=== PATIENT | female | born 1945 | race Caucasian/White ===

== ENCOUNTER → 2023-09-19 10:38 | Outpatient (REF) | payer MEDICARE, OTHER, SELFPAY | LOC: WDC 10:38 | PROVIDERS: ATTENDING PHYSICIAN Obstetrics & Gynecology Gynecology; FAMILY PHYSICIAN Internal Medicine Geriatric Medicine; REFERRING PHYSICIAN Internal Medicine Rheumatology | DX: Z12.31 Encounter for screening mammogram for malignant neoplasm of breast (principal); M81.0 Age-related osteoporosis without current pathological fracture | CPT/HCPCS: 77063; 77067; 77080 ==

== ENCOUNTER 2023-10-01 00:34 | Emergency (ER) | payer MEDICARE, OTHER, SELFPAY ==
[2023-10-01 00:38] VITALS: BP 125/70; BMI 23.0
[2023-10-01 00:47] VITALS: BP 97/87
--- NOTE | 2023-10-01 01:02 | ED.GENMED ---
History of Present Illness
General
Chief Complaint: Cardiac Symptoms
Source: patient
Time Seen by Provider: 10/01/23 00:52
Travel History
Have you had any contact with someone who has COVID-19?: No
Do you have any symptoms of coronavirus? Fever > 100 degrees, chills, cough, shortness of breath, sore throat, loss of taste or smell, muscle aches, or headache?: No
History of Present Illness
History of Present Illness:
This patient is a 78-year-old female who says that around 9 PM tonight she felt like she went into a. She describes this as a 'change in my chest' associated with feeling an irregular pulse. She denies associated pain or dyspnea with this. She
has been monitoring her pulse and blood pressure up at night and states that her blood pressure has been 'consist', but she had an episode lasting at least 30 to 40 minutes where her pulse was between 30 and 40. She noted that when she stood up to
go to the bathroom she felt very lightheaded like she might pass out. Currently she feels like she is in A-fib but does not have dizziness. She denies chest pain or pressure, dyspnea, abdominal pain, nausea, vomiting, or other complaints. Patient
denies recent medication changes and is anticoagulated.
Past History
Past History
ED Past Medical History: Arrthythmia, HTN, Hypercholesterolemia, Psychiatric (Anxiety) and Other (Congenital left facial paralysis, irritable bowel syndrome)
ED Past Surgical History: Orthopedic and Other (Sinus surgery)
Patient has exhibited threatening behavior?: No
PSI?: No
Social History
Tobacco: Former smoker
Alcohol: Occasional
Drug: None
Personal:
Living: with family
Family History
Family History: Negative Diabetes, Hypertension, Early CAD, Asthma or Cancer
Phy Exam
Physical Exam
Physical Exam:
GENERAL: Alert , in no apparent distress
EYE: pupils equal and reactive
NECK: Supple, no significant adenopathy.
ENT: o/p clr, mmm.
CARDIAC: Irregularly irregular, not tachycardic
LUNGS: Clear breath sounds bilaterally, no acute respiratory distress,
ABDOMEN: Soft, without focal tenderness, no r/g, no cvat
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
SKIN: Warm and dry, skin intact.
MUSCULOSKELETAL: No edema, well perfused.
PSYCH: Normal and appropriate interaction.
Course
Orders/Labs/Results
Orders:
Orders
10/01/23 00:43
ECG [Electrocardiogram (*1)] Urgent
Reason for Study: Palpitations
Electrocardiogram (*1) Urgent
Reason for Study: Chest Pain
Cardiac Monitoring- Treatment ONCE
EKG- Treatment ONCE
IV Insert/Care/Rem.- Treatment PRN
O2 Therapy [RESP] Urgent
Titrate/Wean O2 to maintain O2 sat greater than (%): 90
Special Instructions: Maintain sats >/=90%
Pulse Ox/spot Check [RESP] Urgent
Quantity: 1
Special Instructions: ON ROOM AIR
10/01/23 00:44
Portable Chest Xray [CR Chest Portable - 1 View] Urgent
Comment:
Reason For Exam: rad
Reason Study Needs to be Portable: Other
10/01/23 00:59
Complete Blood Count/With Diff Urgent
Comprehensive Metabolic Panel Urgent
Prothrombin Time Urgent
Troponin I Urgent
10/01/23 02:02
ECG [Electrocardiogram (*1)] Urgent
Reason for Study: Atrial Fibrillation
Other Reason for Exam: converted to SR?
EKG- Treatment ONCE
Abnormal Lab Results
10/01/23
00:59
MCHC 32.9 L g/dL
(33.0-37.0)
MPV 11.7 H fL
(7.4-10.4)
Absolute Monos (auto) 0.7 H 10^3/uL
(0.1-0.6)
PT 18.8 H Sec
(11.4-14.6)
Chloride 108 H mmol/L
(98-107)
BUN 27 H mg/dl
(7-17)
Glucose 111 H mg/dl
(70-99)
AST 38 H U/L
(14-36)
10/01/23 00:59
10/01/23 00:59
Vital Signs
Initial and Last Documented VS:
Initial Vital Signs
Temp Pulse Resp BP Pulse Ox
98.4 F 36 16 125/70 97
10/01/23 00:38 10/01/23 00:38 10/01/23 00:38 10/01/23 00:38 10/01/23 00:38
Last Documented Vital Signs
Temp Pulse Resp BP Pulse Ox
98.4 F 97 20 132/98 97
10/01/23 00:38 10/01/23 01:03 10/01/23 01:03 10/01/23 01:03 10/01/23 01:23
*Critical Care Note
Total Time (30-74mins, 75-104mins- exclusive of procedures): Not Applicable
Update Note
Update Note:
Patient presents to the Emergency Department with _irregular heartbeat/palpitation
Number and Complexity of Problems Addressed at the Encounter
� Chronic conditions affecting care:
� Acute Exacerbation and/or Progression of Chronic Illness:
� Differential Diagnosis includes: But not limited to recurrent A-fib, sick sinus syndrome, SVT, etc.
Amount and/or Complexity of Data to be Reviewed and Analyzed
� I performed an independent evaluation of and my interpretation is:
EKG: Initial ECG, A-fib, normal rate, nonspecific slight ST downsloping.
CT:
Xrays: Chest x-ray read by me NAD
Laboratory Studies: Generally unremarkable, nonspecific BUN elevation, patient does not appear dehydrated, no reported bleeding
Other:
� Review of other/old records reveals:
� Clinical information was obtained by an independent historian:
� Prescriptions/Medications Considered but not given:
� Further testing considered but not performed:
Risk of Complications and/or Morbidity or Mortality of Patient Management
� Social determinants of health affecting care:
� Discussion with other providers (PCP, Hospitalists, Consultants, etc): Repeat ECG, sinus bradycardia at 58, no acute abnormalities noted.
� Escalation of care including admission/observation vs risk of discharge considered: Pt asx, now in nsr. D/w pt import of f/u with cards...may need med changes based on bradycardia reported earlier, although I am slightly
skeptical of accuracy of this reading, ex. was from a pox in triage and pt asx at that time with recorded rate of 30.
ED Attending Note
-
Portions of this chart may have been created with voice recognition software.� Occasional wrong word or��sound alike� substitutions may have occurred due to the inherent limitations of voice recognition software.
Discharge Plan
Departure
Patient Disposition: Home (Routine Discharge)
Date of Disposition: 10/01/23
Time of Disposition: 02:24
Patient with high blood pressure during this ER visit?: Yes
Condition: Good
Discharge Problem:
A-fib
Instructions: Atrial Fibrillation (DC), BLOOD PRESSURE
Prescriptions:
No Action
atorvastatin 40 MG tablet
40 mg PO QPM
atenolol 25 MG tablet
25 mg PO QPM
paroxetine HCl 20 MG tablet
20 mg PO DAILY
amlodipine-benazepril 1 CAPSULE capsule
1 cap PO DAILY
Rx Instructions:
5 mg
Vitamin D
1 tab PO DAILY
Xarelto 20 MG tablet
20 mg PO DAILY Qty: 14 0RF
coenzyme [id number] E 1 CAP capsule
100 mg PO DAILY
biotin 1,000 MCG tablet,chewable
1,000 mcg PO DAILY
Referrals:
Juan Jose Cyr MD [Family Provider] -
Alex Hedrick MD [Active] - Follow up in 2-3 days
Activity Restrictions/Additional Instructions:
PLEASE CONTACT YOUR CONTINUITY CLERK ON TUESDAY TO ALERT THEM OF THE EVENTS OF TODAY, WELL TO REVIEW YOUR MEDICATIONS. IN THE MEANTIME, IF YOU DEVELOP PALPITATIONS, DIZZINESS, CHEST PAIN, SHORTNESS OF BREATH, NAUSEA, OR OTHER WORRISOME SIGNS,
PLEASE RETURN TO THE ER IMMEDIATELY.
Interventions
Interventions:
*Risk Screen - Suicide Last Done: 10/01/23 00:38
*Neglect/Abuse Screening Last Done: 10/01/23 00:38
ED- Fall Risk Assessment Last Done: 10/01/23 01:23
*ED COVID-19 Vaccine History Last Done: 10/01/23 00:38
ED- Pulmonary Assessment Last Done: 10/01/23 01:23
ED- Cardiac Assessment Last Done: 10/01/23 01:23
Discharge Date and Time
Print Language: AMHARIC
[2023-10-01 01:03] VITALS: BP 132/98
[2023-10-01 01:06] LABS: % Basophils 0.7 % (0-2); % Eosinophils 3.3 % (0-6); % Immature Granulocytes 0.2 % (0-0.5); % Lymphocytes 41.4 % (20.5-51.1); % Monocytes 9.1 % (1.7-9.3); % Neutrophils 45.3 % (42.2-75.2); Absolute Basophils 0.1 10^3/uL (0-0.2); Absolute Eosinophils 0.3 10^3/uL (0-0.7); Absolute Lymphocytes 3.4 10^3/uL (1.2-3.4); Absolute Monocytes 0.7 10^3/uL (0.1-0.6); Absolute Neutrophils 3.7 10^3/uL (1.4-6.5); Hematocrit 42.9 % (37.0-47.0); Hemoglobin 14.1 g/dL (12.0-16.0); Mean Corp Hgb Conc. 32.9 g/dL (33.0-37.0); Mean Corpuscular Hgb 29.4 pg (27.0-31.0); Mean Corpuscular Volume 89.6 fL (81.0-99.0); Mean Platelet Volume 11.7 fL (7.4-10.4); Nucleated Red Blood Cells % 0 %; Platelet Count 183 10^3/uL (130-400); Red Blood Cell Count 4.79 10^6/uL (4.20-5.40); Red Cell Dist. Width 12.9 % (11.5-14.5); White Blood Cell Count 8.1 10^3/uL (4.8-10.8)
[2023-10-01 01:17] LABS: ALT (SGPT) 30 U/L (0-35); AST (SGOT) 38 U/L (14-36); Albumin 4.3 g/dl (3.5-5.0); Alkaline Phosphatase 59 U/L (38-126); Blood Urea Nitrogen 27 mg/dl (7-17); Calcium 9.4 mg/dl (8.4-10.2); Carbon Dioxide 24 mmol/L (22-30); Chloride 108 mmol/L (98-107); Estimated Creatinine Clearance 40 ml/min; Glucose 111 mg/dl (70-99); Potassium 3.6 mmol/L (3.5-5.1); Sodium 139 mmol/L (135-145); Total Bilirubin 0.5 mg/dl (0.2-1.3); eGFR 58.39
[2023-10-01 01:19] LABS: INR 1.59; PT 18.8 Sec (11.4-14.6)
[2023-10-01 01:29] LABS: Troponin I < 0.012 ng/ml
[2023-10-01 02:00] VITALS: BP 133/59
== END 2023-10-01 02:30 | disposition home or self-care (01) ==
LOC: EMR 00:34
PROVIDERS: EMERGENCY PHYSICIAN Emergency Medicine; FAMILY PHYSICIAN Internal Medicine Geriatric Medicine
DX: I48.91 Unspecified atrial fibrillation (principal); R42 Dizziness and giddiness; I10 Essential (primary) hypertension; E78.00 Pure hypercholesterolemia, unspecified; F41.9 Anxiety disorder, unspecified; K58.9 Irritable bowel syndrome, unspecified; P11.3 Birth injury to facial nerve; Z87.891 Personal history of nicotine dependence; Z88.2 Allergy status to sulfonamides; Z88.8 Allergy status to other drugs, medicaments and biological substances; Z91.041 Radiographic dye allergy status; Z91.013 Allergy to seafood
CPT/HCPCS: 99285; 94760; 71045; 80053; 84484; 85025; 85610; 93005

== ENCOUNTER → 2023-11-08 16:43 | Outpatient (REF) | payer MEDICARE, OTHER, SELFPAY ==
[2023-11-08 18:59] LABS: % Basophils 0.4 % (0-2); % Eosinophils 2.2 % (0-6); % Immature Granulocytes 0.1 % (0-0.5); % Lymphocytes 30.8 % (20.5-51.1); % Monocytes 7.9 % (1.7-9.3); % Neutrophils 58.6 % (42.2-75.2); Absolute Eosinophils 0.2 10^3/uL (0-0.7); Absolute Lymphocytes 2.2 10^3/uL (1.2-3.4); Absolute Monocytes 0.6 10^3/uL (0.1-0.6); Absolute Neutrophils 4.2 10^3/uL (1.4-6.5); Hematocrit 44.4 % (37.0-47.0); Hemoglobin 14.3 g/dL (12.0-16.0); Mean Corp Hgb Conc. 32.2 g/dL (33.0-37.0); Mean Corpuscular Hgb 29.2 pg (27.0-31.0); Mean Corpuscular Volume 90.6 fL (81.0-99.0); Mean Platelet Volume 12.8 fL (7.4-10.4); Nucleated Red Blood Cells % 0 %; Platelet Count 172 10^3/uL (130-400); Red Cell Dist. Width 13.2 % (11.5-14.5); White Blood Cell Count 7.2 10^3/uL (4.8-10.8)
[2023-11-08 19:14] LABS: ALT (SGPT) 26 U/L (0-35); AST (SGOT) 28 U/L (14-36); Albumin 4.4 g/dl (3.5-5.0); Alkaline Phosphatase 61 U/L (38-126); Blood Urea Nitrogen 20 mg/dl (7-17); Calcium 10.1 mg/dl (8.4-10.2); Carbon Dioxide 27 mmol/L (22-30); Chloride 100 mmol/L (98-107); Glucose 75 mg/dl (70-99); Magnesium 2.3 mg/dl (1.6-2.3); Potassium 4.4 mmol/L (3.5-5.1); Sodium 137 mmol/L (135-145); Total Bilirubin 0.7 mg/dl (0.2-1.3); Total Protein 7.3 g/dl (6.3-8.2); eGFR > 60.00
[2023-11-08 19:30] LABS: Vitamin D, 25-OH*** 41.1 ng/mL (30-80)
[2023-11-08 19:44] LABS: TSH Reflex To Free T4 0.84 uIU/ml (0.47-4.68)
== END ==
LOC: REG 16:43
PROVIDERS: ATTENDING PHYSICIAN Internal Medicine Rheumatology; FAMILY PHYSICIAN Internal Medicine Geriatric Medicine; REFERRING PHYSICIAN Physician Assistant Medical
DX: E55.9 Vitamin D deficiency, unspecified (principal); E87.1 Hypo-osmolality and hyponatremia; M75.102 Unspecified rotator cuff tear or rupture of left shoulder, not specified as traumatic; M81.0 Age-related osteoporosis without current pathological fracture; Z13.820 Encounter for screening for osteoporosis; Z79.899 Other long term (current) drug therapy
CPT/HCPCS: 36415; 80053; 82306; 83735; 84443; 85025

== ENCOUNTER → 2023-12-17 09:13 | Outpatient (REF) | payer MEDICARE, OTHER, SELFPAY ==
[2023-12-17 10:29] LABS: HDL Cholesterol 59 mg/dl; LDL Cholesterol, Calculated 64 mg/dl; Total Cholesterol 145 mg/dl (50-199); Triglyceride 111 mg/dl (10-149); Very Low Density Lipoprotein 22 mg/dl (0-30)
[2023-12-17 10:47] LABS: Vitamin D, 25-OH*** 51.6 ng/mL (30-80)
[2023-12-17 11:28] LABS: Erythrocyte Sed Rate 6 mm/hour (0-20)
[2023-12-17 11:36] LABS: Folate 14.9 ng/ml (2.76-20); Vitamin B12 264 pg/ml (239-931)
[2023-12-19 01:06] LABS: Insulin, Random 14 uIU/mL
[2023-12-19 01:32] LABS: IGF-1 Z Score Calculation 0.8; Insulin-like Growth Factor I 132 ng/mL (20-216)
[2023-12-19 07:44] LABS: ANA, IgG Reflex to HEp-2 None Detected (None Detected)
[2023-12-19 15:09] LABS: Lyme Antibody Screen, EIA Negative (Negative)
== END ==
LOC: REG 09:13
PROVIDERS: ATTENDING PHYSICIAN Internal Medicine Geriatric Medicine
DX: Z00.00 Encounter for general adult medical examination without abnormal findings (principal); R15.9 Full incontinence of feces; I10 Essential (primary) hypertension; E78.5 Hyperlipidemia, unspecified; E03.8 Other specified hypothyroidism; E05.90 Thyrotoxicosis, unspecified without thyrotoxic crisis or storm; M81.0 Age-related osteoporosis without current pathological fracture; K27.9 Peptic ulcer, site unspecified, unspecified as acute or chronic, without hemorrhage or perforation; K86.2 Cyst of pancreas; Z79.01 Long term (current) use of anticoagulants; D52.9 Folate deficiency anemia, unspecified; D51.9 Vitamin B12 deficiency anemia, unspecified; E53.1 Pyridoxine deficiency
CPT/HCPCS: 36415; 80061; 82306; 82607; 82746; 83525; 84155; 84165; 84207; 84305; 84425; 84443; 85652; 86038; 86618

== ENCOUNTER → 2023-12-26 11:54 | Outpatient (REF) | payer MEDICARE, OTHER, SELFPAY ==
[2023-12-26 14:29] LABS: Free T3 3.19 pg/ml (2.77-5.27); Free T4 0.94 ng/dl (0.78-2.19)
== END ==
LOC: REG 11:54
PROVIDERS: ATTENDING PHYSICIAN Internal Medicine Geriatric Medicine
DX: E03.9 Hypothyroidism, unspecified (principal)
CPT/HCPCS: 36415; 84439; 84443; 84481

== ENCOUNTER 2024-08-07 10:00 | Day surgery (SDC) | payer MEDICARE, OTHER, SELFPAY ==
[2024-07-31 09:52] VITALS: BMI 23.3
[2024-08-07] VITALS (11 sets, daily range): BP systolic 90–139; BP diastolic 40–54; BMI 23.2
[2024-08-07 12:54] LABS: ACT-LR - POC > 397 Seconds (116-155)
[2024-08-07 13:52] LABS: ACT-LR - POC > 397 Seconds (116-155)
[2024-08-07 13:52] LABS: ACT-LR - POC > 397 Seconds (116-155)
--- NOTE | 2024-08-07 13:52 | ITS.CL.ABL ---
Resource Economist - Ablation
Ablation
Procedure Report:
ELECTROPHYSIOLOGIC STUDY AND POSSIBLE ABLATION
DATE: 08/07/24
Primary Care Provider: Dr Juan Jose Cyr
INDICATION:
Symptomatic Atrial Fibrillation.
Paroxysmal
HISTORY: See H and P.
Symptomatic AF, poorly controlled with attempted medical therapy
HAS-BLED:
Age
CHADSVASc = 4 (age 77 yrs, HTN, female)
PRESENTING RHYTHM: SR
HISTORY: See H and P.
Symptomatic AF, poorly controlled with attempted medical therapy.
ANTICOAGULATION: Rivaroxaban
'TIME-OUT': called and confirmed.
SEDATION/ANESTHESIA: provided via the anesthesia department using general anesthesia.
PROCEDURE:
Ultrasound Guidance with real-time visualization of needle insertion and vessel patency performed by me for femoral venous Vascular Access. Images were taken and saved for the patient's permanent record. Imaging findings typical femoral venous
anatomy. Direct visualization of needle puncture into the femoral vein was observed and recorded.
A decapolar CS catheter was placed within the CS for mapping and pacing.
The intracardiac ultrasound catheter was positioned in the RA for continuous intracardiac ultrasound imaging.
Heparin bolus and infusion to target ACT at 300 -350 seconds was administered. Transseptal puncture was performed. This entailed advancing a sheath with dilator into the superior vena cava and withdrawing both (monitoring intracardiac ultrasound,
fluoroscopy and tip pressure) with the tip oriented toward the atrial septum. The fossa ovalis was engaged (indicated by sudden displacement of the sheath tip as well as tenting of the fossa seen on intracardiac ultrasound).
Ac[employer]Cross transseptal system was used. Left atrial catheter position was confirmed by echocardiographic imaging, pressure monitoring (LA mean pressure 12 mm Hg) and fluoroscopy. The sheath was advanced over the dilator and positioned in the left
atrium.
The multipolar mapping catheter was initially positioned through the transseptal sheath for high density mapping.
Geometry and voltage mapping was performed using the Scifiniti multipolar grid catheter. Ensite-X was utilized for three-dimensional electroanatomical mapping.
A 3-D map was created using [employer] in Voxel mode. A 3-D reconstructed CT image was compared to the 3-D Navex map to assist in anatomic evaluation, mapping and ablation.
The [employer] Pulse Select PFA catheter and system was used for cardiac ablation. Catheter positioning was guided and confirmed using both I.C.E. and fluoroscopy.
PV isolation approach was used to electrically isolate each PV ostia (LSPV, LIPV, RSPV, RIPV).
Additional energy applications/additional ablation set was required to accomplish wide area circumferential ablation around each of the pulmonary vein sets and additionally ablation to accomplish LA posterior wall ablation.
Remapping with the Scifiniti multipolar grid catheter found that all PVPs were eliminated at each vein demonstrating entrance block. Also pacing from the multipolar mapping catheter around the the circumference of the ostia was performed at 10 ma and
2.0 msec output to assess for exit block. This demonstrated electrical isolation at each of the pulmonary vein ostia (LSPV, LIPV, RSPV, RIPV). There is also entrance and exit block at the LA posterior wall.
Programmed electrostimulation failed to induce any sustained arrhythmias.
I.C.E. :
Pre-Ablation Post-Ablation
LVEF: 55 % 55 %
WMA: none none
Pericardial effusion: none none
COMPLICATIONS:
None
SUMMARY:
- Mapping and ablation to isolate the PVs
- Additional AF ablation set after PVI.
- 3-D Electroanatomical Mapping
- Intracardiac Ultrasound
- Ultrasound guidance for vascular access
Post ablation, I discussed today's findings and results with the patient's , Ganesh.
RECOMMENDATIONS:
- Observe in monitored bed.
- Maintain oral anticoagulation.
- Office visit with me is scheduled for 11/06/24.
Copy to:
Dr Juan Jose Cyr
--- NOTE | 2024-08-07 16:05 | W.PN.UPDATE ---
Update Note
Progress Note Update
79 yo WF s/p PVI (same day). She denies cp, sob, castillo diet, mild sore throat, EKG SR, R fem site VASCADE closure dressing with scant drainage, soft. She will resume Xarelto at 730p tonight. Activity restrictions reviewed. She will f/u Dr. Barkley in 3
mo. She is for d/c home after 630pm if groin stable and able to void.
== END 2024-08-07 18:30 | disposition home or self-care (01) ==
LOC: CATH 10:00
PROVIDERS: ATTENDING PHYSICIAN Internal Medicine Cardiovascular Disease; FAMILY PHYSICIAN Internal Medicine Geriatric Medicine
DX: I48.0 Paroxysmal atrial fibrillation (principal); I12.9 Hypertensive chronic kidney disease with stage 1 through stage 4 chronic kidney disease, or unspecified chronic kidney disease; E78.5 Hyperlipidemia, unspecified; M81.0 Age-related osteoporosis without current pathological fracture; K86.2 Cyst of pancreas; K58.9 Irritable bowel syndrome, unspecified; M19.90 Unspecified osteoarthritis, unspecified site; E55.9 Vitamin D deficiency, unspecified; F32.A Depression, unspecified; F41.9 Anxiety disorder, unspecified; Z87.891 Personal history of nicotine dependence; Z79.899 Other long term (current) drug therapy; Z79.01 Long term (current) use of anticoagulants; N18.30 Chronic kidney disease, stage 3 unspecified; Z88.2 Allergy status to sulfonamides; Z88.8 Allergy status to other drugs, medicaments and biological substances; Z91.041 Radiographic dye allergy status; Z98.890 Other specified postprocedural states; P11.3 Birth injury to facial nerve
CPT/HCPCS: C1732; C1894; C1769; C1892; C1759; C1733; 76937; 85347; 86900; 86901; 93005; 93656; 93657; C1766

== ENCOUNTER → 2024-09-20 11:19 | Outpatient (REF) | payer MEDICARE, OTHER, SELFPAY | LOC: WDC 11:19 | PROVIDERS: ATTENDING PHYSICIAN Obstetrics & Gynecology Gynecology; FAMILY PHYSICIAN Internal Medicine Geriatric Medicine | DX: Z12.31 Encounter for screening mammogram for malignant neoplasm of breast (principal) | CPT/HCPCS: 77063; 77067 ==

== ENCOUNTER → 2024-11-26 16:33 | Outpatient (REF) | payer MEDICARE, OTHER, SELFPAY ==
[2024-11-26 17:29] LABS: % Basophils 0.5 % (0-2); % Eosinophils 4.5 % (0-6); % Immature Granulocytes 0.2 % (0-0.5); % Lymphocytes 36.9 % (20.5-51.1); % Monocytes 7.5 % (1.7-9.3); % Neutrophils 50.4 % (42.2-75.2); Absolute Eosinophils 0.3 10^3/uL (0-0.7); Absolute Lymphocytes 2.3 10^3/uL (1.2-3.4); Absolute Monocytes 0.5 10^3/uL (0.1-0.6); Absolute Neutrophils 3.1 10^3/uL (1.4-6.5); Hematocrit 42.1 % (37.0-47.0); Hemoglobin 14.3 g/dL (12.0-16.0); Mean Corpuscular Hgb 29.7 pg (27.0-31.0); Mean Corpuscular Volume 87.5 fL (81.0-99.0); Mean Platelet Volume 12.1 fL (7.4-10.4); Nucleated Red Blood Cells % 0 %; Platelet Count 178 10^3/uL (130-400); Red Blood Cell Count 4.81 10^6/uL (4.20-5.40); Red Cell Dist. Width 12.9 % (11.5-14.5); White Blood Cell Count 6.2 10^3/uL (4.8-10.8)
[2024-11-26 17:46] LABS: ALT (SGPT) 26 U/L (0-35); AST (SGOT) 24 U/L (14-36); Albumin 4.8 g/dl (3.5-5.0); Alkaline Phosphatase 60 U/L (38-126); Blood Urea Nitrogen 21 mg/dl (7-17); Calcium 9.4 mg/dl (8.4-10.2); Carbon Dioxide 24 mmol/L (22-30); Chloride 105 mmol/L (98-107); Glucose 85 mg/dl (70-99); Potassium 4.4 mmol/L (3.5-5.1); Sodium 138 mmol/L (135-145); Total Bilirubin 0.9 mg/dl (0.2-1.3); Total Protein 7.5 g/dl (6.3-8.2); eGFR > 60.00
[2024-11-26 18:02] LABS: Vitamin D, 25-OH*** 48.4 ng/mL (30-80)
== END ==
LOC: REG 16:33
PROVIDERS: ATTENDING PHYSICIAN Internal Medicine Rheumatology; FAMILY PHYSICIAN Internal Medicine Geriatric Medicine
DX: E55.9 Vitamin D deficiency, unspecified (principal); M75.102 Unspecified rotator cuff tear or rupture of left shoulder, not specified as traumatic; M81.0 Age-related osteoporosis without current pathological fracture; Z13.820 Encounter for screening for osteoporosis; Z79.899 Other long term (current) drug therapy
CPT/HCPCS: 36415; 80053; 82306; 82523; 85025

== ENCOUNTER → 2024-12-10 10:47 | Outpatient (REF) | payer MEDICARE, OTHER, SELFPAY ==
[2024-12-10 12:32] LABS: % Basophils 0.4 % (0-2); % Eosinophils 5.6 % (0-6); % Immature Granulocytes 0.2 % (0-0.5); % Lymphocytes 34.5 % (20.5-51.1); % Monocytes 9.2 % (1.7-9.3); % Neutrophils 50.1 % (42.2-75.2); Absolute Eosinophils 0.3 10^3/uL (0-0.7); Absolute Lymphocytes 1.7 10^3/uL (1.2-3.4); Absolute Monocytes 0.5 10^3/uL (0.1-0.6); Absolute Neutrophils 2.5 10^3/uL (1.4-6.5); Hematocrit 42.7 % (37.0-47.0); Hemoglobin 13.9 g/dL (12.0-16.0); Mean Corp Hgb Conc. 32.6 g/dL (33.0-37.0); Mean Corpuscular Volume 89.1 fL (81.0-99.0); Mean Platelet Volume 12.1 fL (7.4-10.4); Nucleated Red Blood Cells % 0 %; Platelet Count 191 10^3/uL (130-400); Red Blood Cell Count 4.79 10^6/uL (4.20-5.40); Red Cell Dist. Width 13.2 % (11.5-14.5)
[2024-12-10 13:51] LABS: ALT (SGPT) 21 U/L (0-35); AST (SGOT) 21 U/L (14-36); Albumin 4.1 g/dl (3.5-5.0); Alkaline Phosphatase 42 U/L (38-126); Blood Urea Nitrogen 22 mg/dl (7-17); Calcium 9.5 mg/dl (8.4-10.2); Carbon Dioxide 25 mmol/L (22-30); Chloride 108 mmol/L (98-107); Glucose 95 mg/dl (70-99); HDL Cholesterol 61 mg/dl; LDL Cholesterol, Calculated 68 mg/dl; Potassium 4.8 mmol/L (3.5-5.1); Sodium 140 mmol/L (135-145); Total Bilirubin 0.7 mg/dl (0.2-1.3); Total Cholesterol 154 mg/dl (50-199); Total Protein 6.7 g/dl (6.3-8.2); Triglyceride 126 mg/dl (10-149); Very Low Density Lipoprotein 25 mg/dl (0-30); eGFR 58.02
[2024-12-10 14:01] LABS: Free T4 1.11 ng/dl (0.78-2.19); Vitamin D, 25-OH*** 44.3 ng/mL (30-80)
[2024-12-10 15:17] LABS: Urine Albumin Negative (Neg - Trace); Urine Bilirubin Negative (Negative); Urine Character Clear (Clear); Urine Color Yellow; Urine Glucose Negative (Negative); Urine Ketone Negative (Negative); Urine Leukocyte Negative (Negative); Urine Nitrite Negative (Negative); Urine Occult Blood Negative (Negative); Urine Specific Gravity 1.015 (<1.030); Urine Urobilinogen Negative (Neg - 1+)
== END ==
LOC: REG 10:47
PROVIDERS: ATTENDING PHYSICIAN Internal Medicine Geriatric Medicine
DX: Z00.00 Encounter for general adult medical examination without abnormal findings (principal); Z79.899 Other long term (current) drug therapy; R82.90 Unspecified abnormal findings in urine; E03.8 Other specified hypothyroidism; E78.5 Hyperlipidemia, unspecified; R79.9 Abnormal finding of blood chemistry, unspecified; R79.89 Other specified abnormal findings of blood chemistry; I10 Essential (primary) hypertension; I48.0 Paroxysmal atrial fibrillation
CPT/HCPCS: 36415; 80053; 80061; 81003; 82306; 84439; 84443; 85025

== ENCOUNTER → 2025-01-21 16:34 | Outpatient (REF) | payer MEDICARE, OTHER, SELFPAY ==
[2025-01-21 17:44] LABS: C-Reactive Protein < 5.00 mg/L (0.0-10.00)
[2025-01-21 18:15] LABS: TSH 1.31 uIU/ml (0.47-4.68)
[2025-01-23 22:14] LABS: Thyroglobulin Antibodies <1.5 IU/mL (0.0-4.0)
== END ==
LOC: REG 16:34
PROVIDERS: ATTENDING PHYSICIAN Internal Medicine Geriatric Medicine
DX: I10 Essential (primary) hypertension (principal); E78.5 Hyperlipidemia, unspecified; E03.8 Other specified hypothyroidism; E05.90 Thyrotoxicosis, unspecified without thyrotoxic crisis or storm; M81.0 Age-related osteoporosis without current pathological fracture; K27.9 Peptic ulcer, site unspecified, unspecified as acute or chronic, without hemorrhage or perforation; K86.2 Cyst of pancreas; Z79.01 Long term (current) use of anticoagulants; I48.0 Paroxysmal atrial fibrillation; F41.1 Generalized anxiety disorder; E55.9 Vitamin D deficiency, unspecified; Z13.31 Encounter for screening for depression
CPT/HCPCS: 36415; 84439; 84443; 85652; 86140; 86376; 86800